=== PATIENT | male | born 1985 | race Hispanic/Latino ===

== ENCOUNTER 2017-05-21 16:17 | Emergency (ER) | payer OTHER ==
[2017-05-21] MEDS: NS 1,000 ML IV ×2 (18:28→21:10)
[2017-05-21] MEDS: KETOROLAC 30 MG/ML VIAL (J1885) IV (18:29)
[2017-05-21] MEDS: METOCLOPRAMIDE INJ 10MG/2ML VIAL (J2765) IV (18:29)
[2017-05-21] MEDS: ACETAMINOPHEN 325 MG TAB PO (19:47)
== END 2017-05-21 21:16 | disposition home or self-care (01) ==
LOC: M ED 16:17
DX: A08.4 Viral intestinal infection, unspecified (principal)
CPT/HCPCS: J1885